=== PATIENT | male | born 1970 | race Hispanic/Latino ===

== ENCOUNTER 2019-11-10 13:35 | Emergency (ER) | payer OTHER ==
[~2019-11-10] VITALS: Ht 175.3 cm; Wt 87.5 kg
--- NOTE | 2019-11-10 13:56 | NUR ---
RUDE, ABRUPT, ARGUEMENTATIVE, UNPLEASANT TOWARDS MD, RNS, TECH. PT DEMANDED NOT TO ANSWER ANY QUESTIONS, HE WOULD TALK AND NOT BE INTURUPTED. PT THINKS ABD PAIN FROM FOOD POISONING 3 WKS AGO AND CHILD FALLING ON HIS STOMACH ONE WK AGO. PT DRINKING FROM WATER BOTTLE AFTER STATING HE HASNT EATTEN OR DRANK IN LAST 4 DAYS AND IS LOSING 7 POUNDS PER DAY...............
[2019-11-10] MEDS ORDERED: SODIUM CHLORIDE 0.9% 1000ML 1,000 ML IV STA (14:01)
[2019-11-10] MEDS ORDERED: PANTOPRAZOLE 40 MG 10ML VIAL IV STA (14:01)
[2019-11-10] MEDS ORDERED: ONDANSETRON HCL INJ 2MG/ML 2ML 2 MG/ML VIAL IV STA (14:01)
[2019-11-10 14:14] LABS: BASOPHILS % 0.2 % (0.0-1.0); HEMATOCRIT 42.5 % (38.2-49.6); HEMOGLOBIN 14.6 g/dL (14.0-18.0); LYMPHOCYTES # (AUTO) 1.1 (1.0-3.2); LYMPHOCYTES % 5.8 % (18.0-39.1); MEAN CORPUSCULAR HEMOGLOBIN 30.7 pg (28-32); MEAN CORPUSCULAR HGB CONC 34.4 g/dL (31-35); MEAN CORPUSCULAR VOLUME 89.3 fL (81-99); MONOCYTES # (AUTO) 1.3 (0.2-0.8); MONOCYTES % 7.1 % (4.4-11.3); NEUTROPHILS # (AUTO) 16.2 (2.1-6.9); NEUTROPHILS % 86.4 % (38.7-80.0); PLATELET COUNT 306 x10e3/uL (140-360); RED BLOOD COUNT 4.76 x10e6/uL (4.3-5.7); RED CELL DISTRIBUTION WIDTH 13.4 % (11.7-14.4)
[2019-11-10] MEDS ORDERED: DICYCLOMINE HCL 20 MG/2 ML VIAL IM ONE (14:15)
[2019-11-10 14:26] LABS: CLARITY,URINE SL CLOUDY (CLEAR); COLOR,URINE STRAW (YELLOW); LEUKOCYTE ESTERASE ,URINE NEGATIVE (NEGATIVE); NITRITE,URINE NEGATIVE (NEGATIVE); PROTEIN,URINE DIPSTICK 2+ (NEGATIVE)
[2019-11-10 14:27] LABS: BILIRUBIN,URINE 2+ (NEGATIVE); KETONES,URINE 3+ (NEGATIVE); URINE UROBILINOGEN 0.2 mg/dL (0.2 - 1)
[2019-11-10 14:33] LABS: ALANINE AMINOTRANSFERASE 12 IU/L (0-55); ALKALINE PHOSPHATASE 64 IU/L (40-150); AMYLASE 27 U/L (25-125); ANION GAP 17.5 mmol/L (8-16); BLOOD UREA NITROGEN 11 mg/dL (7-26); BUN/CREATININE RATIO 14 (6-25); CALCIUM 9.6 mg/dL (8.4-10.2); CARBON DIOXIDE 25 mmol/L (22-29); CHLORIDE 99 mmol/L (98-107); CREATINE KINASE 95 IU/L (30-200); CREATININE, SERUM 0.77 mg/dL (0.72-1.25); EST GLOMERULAR FILTRATION RATE > 60 ML/MIN (60-); GLUCOSE 120 mg/dL (74-118); LIPASE 4 U/L (8-78); POTASSIUM 3.5 mmol/L (3.5-5.1); SODIUM 138 mmol/L (136-145)
[2019-11-10 14:53] LABS: EPITHELIAL CELLS,URINE RARE /LPF
--- NOTE | 2019-11-10 15:58 | Diagnostic Imaging Report ---
CT of the abdomen and pelvis History: Abdominal pain Comparison: None available. Technique: Multidetector CT scanning of the abdomen and pelvis was performed from the level of the lung bases to the inferior pubic ramus with IV contrast DOSE REDUCTION: The examination was performed according to departmental dose-optimization program which includes automated exposure control, adjustment of the mA and/or kV according to patient size and/or use of iterative reconstruction technique. Discussion: The lung bases are clear. No focal hepatic lesions are identified. The gallbladder is nondistended. A calcified gallstone is present within the gallbladder fundus. There is no gallbladder wall thickening or pericholecystic fluid. No intrahepatic or extra hepatic biliary dilatation. The spleen contains a partially calcified 4.6 cm diameter cyst. The bilateral adrenal glands are unremarkable. The pancreas is normal in attenuation. There is no pancreatic ductal dilatation or peripancreatic inflammatory stranding. The kidneys are normal in size and enhance symmetrically. No hydroureteronephrosis bilaterally. No renal calculi. The stomach, small, and large bowel are nondistended. There is no evidence of obstruction. There is segmental wall thickening of the jejunum in the left upper quadrant to 1 cm in thickness. Findings are best appreciated on axial image 39. This may be secondary to enteritis. The appendix is normal in caliber. There are scattered colonic diverticula without evidence of acute diverticulitis. There is no free intraperitoneal air or ascites. The abdominal aorta is of normal course and caliber. The urinary bladder is within normal limits. No enlarged abdominal or retroperitoneal lymph nodes are identified. There are no acute osseous abnormalities. IMPRESSION: Segmental jejunal wall thickening which may be secondary to infectious or inflammatory enteritis. Cholelithiasis without CT evidence of acute cholecystitis. Signed by: Jourdan Darnell MD on 11/10/2019 3:55 PM
[2019-11-10] MEDS ORDERED: CEFTRIAXONE SOD 1 GM/NS 50 ML 50 ML IV ONE ×2 (16:45)
== END 2019-11-10 17:23 | disposition home or self-care (01) ==
LOC: ER 13:35
DX: R10.12 Left upper quadrant pain (principal); K52.9 Noninfective gastroenteritis and colitis, unspecified
CPT/HCPCS: 36415; 74177; 80053; 81001; 82150; 82550; 82553; 83690; 84484; 85025; 87086; 99284; C9113; J0500; J0696; J2405; J7030